=== PATIENT | male | born 1975 | race Caucasian/White ===

== ENCOUNTER 2017-12-13 18:04 | Inpatient (IN) | payer MEDICAID ==
[~2017-12-13] VITALS: Ht 175.3 cm; Wt 66.8 kg
[2017-12-13] MEDS ORDERED: DIVA-78 PO (19:03)
[2017-12-13] MEDS ORDERED: OLAN5TAB2 PO (19:03)
[2017-12-13 19:41] LABS: BASOPHILS % (AUTO) 1.3 % (0.0-2.0); EOSINOPHILS % (AUTO) 3.7 % (1.0-6.0); HEMOGLOBIN 15.2 g/dL (13.5-17.5); LYMPHOCYTES # (AUTO) 2.3 K/uL (1.0-4.8); LYMPHOCYTES % (AUTO) 28.4 % (22.0-44.0); MEAN CORPUSCULAR HEMOGLOBIN 33.7 pg (26.0-34.0); MEAN CORPUSCULAR HGB CONC 35.9 G/dL (31.0-37.0); MEAN CORPUSCULAR VOLUME 94 fL (80-100); MONOCYTES # (AUTO) 0.8 K/uL (0.1-1.0); MONOCYTES % (AUTO) 10.1 % (2.0-9.0); NEUTROPHILS # (AUTO) 4.5 K/uL (1.8-7.7); NEUTROPHILS % (AUTO) 56.5 % (40.0-70.0); PLATELET COUNT (AUTO) 221 K/uL (150-450); RED CELL DISTRIBUTION WIDTH 13.3 % (11.5-14.5)
[2017-12-13 19:49] LABS: ANION GAP 9 mmol/L (8-16); CARBON DIOXIDE 27 mmol/L (22-29); CHLORIDE 103 mmol/L (98-107); CREATININE 0.72 mg/dL (0.60-1.30); GLOMERULAR FILTR. RATE CALC > 60 mL/min (>60); GLUCOSE,RANDOM 94 mg/dL (70-110); SODIUM SERUM 139 mmol/L (136-145); UREA NITROGEN, BLOOD 24 mg/dL (7-18)
[2017-12-13 19:55] LABS: ALANINE AMINOTRANSFERASE 23 U/L (12-78); ALKALINE PHOSPHATASE 61 U/L (46-116); ASPARTATE AMINOTRANSFERASE 16 U/L (15-37); BILIRUBIN,TOTAL 0.3 mg/dL (0.1-1.0); TOTAL PROTEIN, SERUM 7.3 g/dL (6.4-8.2)
[2017-12-13] MEDS ORDERED: ZOLPIDEM TARTRATE 10 MG TABLET PO PRN (20:30)
[2017-12-13] MEDS ORDERED: HALOPERIDOL 5 MG TABLET PO PRN (20:30)
[2017-12-13] MEDS ORDERED: DIVALPROEX SODIUM 500 MG DR TABLET PO SCH (23:45)
[2017-12-13] MEDS ORDERED: OLANZapine 5 MG TABLET PO SCH (23:45)
[2017-12-14 00:37] VITALS: BP 114/85
[2017-12-14 06:49] LABS: FREE T4 (FREE THYROXINE) 0.7 ng/dL (0.76-1.46); THYROID STIMULATING HORMONE 0.74 uIU/mL (0.36-3.74)
[2017-12-14] MEDS ORDERED: ONDANSETRON HCL 4 MG TABLET PO PRN (08:00)
[2017-12-14] MEDS ORDERED: IBUPROFEN 400 MG TABLET PO PRN (08:00)
[2017-12-14] MEDS ORDERED: DOCUSATE SODIUM 100 MG CAPSULE PO PRN (08:00)
[2017-12-14] MEDS ORDERED: ALBUTEROL SULFATE HFA 90 MCG/PUFF 8 GM INHALER IH PRN (08:00)
[2017-12-14] MEDS ORDERED: PETROLATUM,WHITE 71 GM JELLY TP PRN (08:00)
[2017-12-14] MEDS ORDERED: MAGNESIUM HYDROXIDE SUSPENSION 30 ML UDCUP PO PRN (08:00)
[2017-12-14] MEDS ORDERED: MAG HYDROX/AL HYDROX/SIMETH ES 30 ML SUSPENSION UDCUP PO PRN (08:00)
[2017-12-14] MEDS ORDERED: ACETAMINOPHEN 325 MG TABLET PO PRN (08:00)
[2017-12-14 08:21] VITALS: BP 113/75
[2017-12-14] MEDS: NICOTINE 14 MG/24 HOUR PATCH TD SCH (09:00)
[2017-12-14] MEDS: LORazepam 2 MG TABLET PO PRN (20:17)
[2017-12-14] MEDS: OLANZapine 10 MG TABLET PO SCH (20:17)
[2017-12-14 20:18] VITALS: BP 118/65
[2017-12-14] MEDS ORDERED: DIVALPROEX SODIUM 500 MG DR TABLET PO ONE (20:30)
[2017-12-14] MEDS ORDERED: DIVALPROEX SODIUM 500 MG DR TABLET PO SCH (21:00)
[2017-12-15] MEDS: LEVOTHYROXINE SODIUM 25 MCG TABLET PO SCH (05:57)
[2017-12-15] MEDS: NICOTINE 14 MG/24 HOUR PATCH TD SCH (08:07)
[2017-12-15 08:20] VITALS: BP 105/73
[2017-12-15 11:02] VITALS: BP 123/81
[2017-12-15 15:51] VITALS: BP 110/78
[2017-12-15 16:17] VITALS: BP 110/78
[2017-12-15] MEDS: LORazepam 2 MG TABLET PO PRN (16:20)
[2017-12-15] MEDS: OLANZapine 10 MG TABLET PO SCH (20:07)
[2017-12-15] MEDS ORDERED: DIVALPROEX SODIUM 500 MG DR TABLET PO SCH (21:00)
[2017-12-16 06:45] VITALS: BP 125/77
[2017-12-16] MEDS: LEVOTHYROXINE SODIUM 25 MCG TABLET PO SCH (06:55)
[2017-12-16 08:32] VITALS: BP 132/77
[2017-12-16] MEDS: NICOTINE 14 MG/24 HOUR PATCH TD SCH (08:58)
[2017-12-16] MEDS ORDERED: LEVO25TA9 PO (09:15)
== END 2017-12-16 12:05 | disposition home or self-care (01) | DRG 754 ==
LOC: EMS 18:05 → AHU 22:48 → B2S 12-15 10:00
PROVIDERS: ADMIT Psychiatry & Neurology Psychiatry; ATTEND Psychiatry & Neurology Psychiatry
DX: F32.9 Major depressive disorder, single episode, unspecified (principal); R45.851 Suicidal ideations; G40.909 Epilepsy, unspecified, not intractable, without status epilepticus; E03.9 Hypothyroidism, unspecified; F43.10 Post-traumatic stress disorder, unspecified; F17.210 Nicotine dependence, cigarettes, uncomplicated; F41.9 Anxiety disorder, unspecified; F19.10 Other psychoactive substance abuse, uncomplicated; G47.00 Insomnia, unspecified; J45.909 Unspecified asthma, uncomplicated; Z81.8 Family history of other mental and behavioral disorders; Z79.899 Other long term (current) drug therapy; Z71.6 Tobacco abuse counseling
CPT/HCPCS: 84439; 84443; 99285; G0480